=== PATIENT | female | born 2005 ===

== ENCOUNTER 2024-11-15 09:48 | Day surgery (SDC) | payer BC ==
[~2024-11-15 09:48] MED LIST: Sodium Chloride 0.9% 10 ML Syringe FLUSH PRN; Sodium Chloride 0.9% 2.5 ML Syringe FLUSH PRN; Sodium Chloride 0.9% 20 ML SDV IV PRN
[2024-11-15] MEDS: Lactated Ringers 1,000 ML IV SCH (10:23)
[2024-11-15] MEDS ORDERED: Lidocaine 2% 5 ML SDV ONE (10:46)
[2024-11-15] MEDS ORDERED: Propofol 200 MG/20 ML SDV ONE (10:46)
== END 2024-11-15 12:30 | disposition home or self-care (01) ==
LOC: MW.SDS 09:48
PROVIDERS: ATTEND Surgery
DX: K29.50 Unspecified chronic gastritis without bleeding (principal); K21.9 Gastro-esophageal reflux disease without esophagitis; K80.20 Calculus of gallbladder without cholecystitis without obstruction; F32.A Depression, unspecified; F41.9 Anxiety disorder, unspecified; Z79.899 Other long term (current) drug therapy; Z88.0 Allergy status to penicillin; Z91.040 Latex allergy status; Z91.030 Bee allergy status
CPT/HCPCS: 43239; 81025; J2003; J2704; J7120; 00731

== ENCOUNTER 2024-12-22 09:29 | Day surgery (SDC) | payer BC ==
[~2024-12-22 09:29] MED LIST changes: +Albuterol 0.083% 2.5 MG/3 ML Neb Soln NEB PRN; +HYDROmorphone 1 MG/ML Syringe IVPUSH PRN; +Metoclopramide 10 MG/2 ML SDV IVPUSH PRN; +Morphine 2 MG/ML SYRINGE IVPUSH PRN; +Naloxone 0.4 MG/ML SDV IVPUSH PRN; +Ondansetron 4 MG/2 ML SDV IVPUSH PRN; +Phenylephrine HCl In 0.9% NaCl 1 MG/10 ML Syringe IVPUSH PRN; +ceFAZolin 2 GM in Water For Injection, Sterile 20 ML IVPUSH ONE; +fentaNYL 50 MCG/ML SDV IVPUSH PRN
[2024-12-22] MEDS ORDERED: Bupivacaine 0.5% 30 ML SDV ONE (09:46)
[2024-12-22] MEDS ORDERED: propofoL 500 MG/50 ML 50 ML ONE ×3 (10:07→11:29)
[2024-12-22] MEDS ORDERED: Dexamethasone 4 MG/ML 5 ML MDV ONE (10:08)
[2024-12-22] MEDS ORDERED: Ondansetron 4 MG/2 ML SDV ONE (10:08)
[2024-12-22] MEDS ORDERED: Ketorolac 30 MG/ML SDV ONE (10:08)
[2024-12-22] MEDS ORDERED: Rocuronium Bromide 50 MG/5 ML Syringe ONE (10:08)
[2024-12-22] MEDS ORDERED: Sugammadex Sodium 200 MG/2 ML VIAL IV ONE (10:08)
[2024-12-22] MEDS ORDERED: Lidocaine 2% 5 ML SDV ONE (10:08)
[2024-12-22] MEDS ORDERED: fentaNYL 100 MCG/2 ML SDV ONE ×2 (10:12→11:56)
[2024-12-22] MEDS ORDERED: dexmedeTOMIDine HCl 200 MCG/2 ML SDV ONE (10:12)
[2024-12-22] MEDS ORDERED: Ropivacaine 0.5% 5 MG/ML 30 ML SDV ONE (10:21)
[2024-12-22] MEDS ORDERED: Bupivacaine 0.25% 30 ML SDV ONE (10:21)
[2024-12-22] MEDS: Lactated Ringers 1,000 ML IV SCH (10:24)
[2024-12-22] MEDS ORDERED: ceFAZolin 2 GM Vial ONE (10:45)
[2024-12-22] MEDS ORDERED: Metoclopramide 10 MG/2 ML SDV ONE (10:50)
== END 2024-12-22 13:45 | disposition home or self-care (01) ==
LOC: MW.SDS 09:29
PROVIDERS: ATTEND Surgery
DX: K80.10 Calculus of gallbladder with chronic cholecystitis without obstruction (principal); K21.9 Gastro-esophageal reflux disease without esophagitis; E66.9 Obesity, unspecified; Z88.0 Allergy status to penicillin; Z88.8 Allergy status to other drugs, medicaments and biological substances; Z68.34 Body mass index [BMI] 34.0-34.9, adult; Z91.030 Bee allergy status; Z91.09 Other allergy status, other than to drugs and biological substances; Z91.040 Latex allergy status; Z79.899 Other long term (current) drug therapy
CPT/HCPCS: 47562; 64488; 81025; J0665; J0690; J1100; J1885; J2003; J2405; J2704; J2765; J2795; J3010; J7120; 00790; 64486; J3490